=== PATIENT | male | born 1985 | race Caucasian/White ===

== ENCOUNTER 2019-12-30 22:53 | Emergency (ER) | payer OTHER ==
[~2019-12-30] VITALS: Ht 177.8 cm; Wt 102.2 kg
[2019-12-30] MEDS ORDERED: PERCOCET1 TA2 PO (23:10)
[2019-12-30] MEDS ORDERED: NEXIUM40 M1 PO (23:11)
[2019-12-30] MEDS ORDERED: CYMBALTA60 MG PO (23:12)
[2019-12-30] MEDS ORDERED: TESTOSTERONE (23:12)
[2019-12-30] MEDS ORDERED: SOMA250 MG PO (23:13)
[2019-12-30] MEDS ORDERED: HYDROCO/APAP1 TA9 PO (23:33)
[2019-12-30 23:47] VITALS: BP 138/82
== END 2019-12-30 23:47 | disposition home or self-care (01) | DRG 563 ==
LOC: ED 22:53
PROC: 0RSWXZZ Reposition Right Finger Phalangeal Joint, External Approach (ICD-10-PCS; principal; 2019-12-30)
DX: S63.282A Dislocation of proximal interphalangeal joint of right middle finger, initial encounter (principal); W54.1XXA Struck by dog, initial encounter; W55.42XA Struck by pig, initial encounter; F17.210 Nicotine dependence, cigarettes, uncomplicated; Y93.89 Activity, other specified; Y92.007 Garden or yard of unspecified non-institutional (private) residence as the place of occurrence of the external cause

== ENCOUNTER 2021-02-26 20:32 | Observation (INO) | payer OTHER ==
[~2021-02-26] VITALS: Ht 177.8 cm; Wt 92.0 kg
[~2021-02-26 20:32] MED LIST: CYMBALTA60 MG PO; HYDROCO/APAP1 TA9 PO; NEXIUM40 M1 PO; PERCOCET1 TA2 PO; SOMA250 MG PO; TESTOSTERONE
[2021-02-26] MEDS ORDERED: ZOLOFT100 MG PO (21:10)
[2021-02-26] MEDS ORDERED: SEROQUEL50 MG PO (21:11)
[2021-02-26] MEDS ORDERED: DIAZEPAM5 MG PO (21:12)
[2021-02-26 21:40] LABS: HEMATOCRIT 46.4 % (39.0-50.0); HEMOGLOBIN 15.9 g/dl (14.0-18.0); IMMATURE GRANULOCYTES 0.1 % (0.0-5.0); MEAN CELL VOLUME 92.6 fL CALC (80.0-100.0); MEAN CORPUSCULAR HGB 31.7 pG CALC (26.0-32.0); MEAN CORPUSCULAR HGB CONC 34.3 g/dL CAL (32.0-36.0); NEUT# 7.4 thou/uL (1.82-7.42); RED BLOOD COUNT 5.01 mill/uL (4.70-6.10); RED CELL DISTRI WIDTH 13.6 % (11.5-15.5)
[2021-02-26 21:55] LABS: ALBUMIN 4.1 g/dL (3.2-5.0); ALKALINE PHOSPHATASE 54 u/l (38-126); ANION GAP 9 (6-22 (CALC)); BILIRUBIN, TOTAL 0.6 mg/dL (0.0-1.4); BUN 11 mg/dL (9-20); BUN/CREATININE RATIO 9 (12-20 (CALC)); CARBON DIOXIDE 29 mmol/l (22-30); CHLORIDE 105 mmol/l (95-108); CREATININE 1.2 mg/dL (0.7-1.3); GFR > 60 ML/MIN (>=60 (CALC)); GFR FOR AFR.AMER. > 60 ML/MIN (>=60 (CALC)); POTASSIUM 4.1 mmol/l (3.5-5.1); SGOT/AST 26 u/l (17-59); SODIUM 139 mmol/l (137-146)
[2021-02-26 22:07] LABS: MYOGLOBIN 165 ng/mL (0 - 121)
[2021-02-26 22:41] LABS: URINE BLOOD DIPSTICK NEGATIVE (NEGATIVE); URINE COLOR YELLOW; URINE GLUCOSE - DIPSTICK NEGATIVE (NEGATIVE); URINE KETONE TRACE mg/dL (NEGATIVE); URINE LEUK ESTERASE NEGATIVE (NEGATIVE); URINE PH 6.5 (4.5-8.0); URINE PROTEIN - DIPSTICK NEGATIVE (NEG-TRACE)
[2021-02-26 22:44] LABS: URINE BILIRUBIN - DIPSTICK NEGATIVE (NEGATIVE); URINE NITRITE - DIPSTICK NEGATIVE (Negative)
[2021-02-26 23:58] VITALS: BP 123/66
[2021-02-27 04:00] VITALS: BP 100/58
[2021-02-27 08:10] VITALS: BP 108/63
[2021-02-27 10:12] VITALS: BP 110/63
[2021-02-27] MEDS ORDERED: SUBOXONE1 MI1 SL (11:43)
[2021-02-27 15:22] VITALS: BP 134/80
[2021-02-27 19:10] VITALS: BP 118/73
== END 2021-02-27 19:35 | disposition short-term general hospital (02) | DRG 312 ==
LOC: ED 20:32 → ED-I 23:00 → ED 23:25 → MS2 23:26
PROVIDERS: Family Medicine; ADMIT Internal Medicine; ATTEND Internal Medicine
DX: R55 Syncope and collapse (principal); S09.90XA Unspecified injury of head, initial encounter; S61.012A Laceration without foreign body of left thumb without damage to nail, initial encounter; G89.4 Chronic pain syndrome; M47.819 Spondylosis without myelopathy or radiculopathy, site unspecified; M48.00 Spinal stenosis, site unspecified; F41.9 Anxiety disorder, unspecified; F32.A Depression, unspecified; V89.2XXA Person injured in unspecified motor-vehicle accident, traffic, initial encounter; Z20.822 Contact with and (suspected) exposure to COVID-19
CPT/HCPCS: G0378; J1650